=== PATIENT | male | born 2000 | race Caucasian/White ===

== ENCOUNTER 2019-04-25 10:26 | Emergency (ER) | payer OTHER ==
--- NOTE | 2019-04-25 10:28 | ER Report ---
History and Physical Time Seen By MD: 10:25 HPI/ROS CHIEF COMPLAINT: Itching, hand swelling HISTORY OF PRESENT ILLNESS: Patient is a 18-year-old male here with complaints of bilateral hand swelling, itching. Patient reportedly completed a 10 day course of penicillin for a mouth infection and says currently he developed itching, hand swelling, mild facial rash for which he has taken Benadryl, ibuprofen, seasonal allergy medication without relief. Patient is alert and oriented, no respiratory distress, afebrile at time of evaluation. There is no stridor presentation or esophageal swelling. REVIEW OF SYSTEMS: Constitutional: No fever, no chills. Eyes: No discharge. ENT: No sore throat. No swelling of the posterior oropharynx, no stridor or wheezing Respiratory: No wheezing, rales or rhonchi. Lungs are clear to auscultation in all quadrants Cardiovascular: No chest pain, no palpitations. Musculoskeletal: No significant edema Skin: Mild facial rash without urticaria Neurological: No headache. Allergies: Coded Allergies: Penicillins (Verified Adverse Reaction, Mild, ITCHING, 04/25/19) Home Meds Active Scripts Hydroxyzine Hcl (HYDROXYZINE HCL) 25 Mg Tablet, 25 MG PO Q8-12H PRN for ITCHING, #20 TAB Prov:JANICE ENG DO 04/25/19 Constitutional Vital Sign - Last 24 Hours 04/25/19 10:31 Temp 97.9 Pulse 81 Resp 16 B/P (MAP) 137/82 Pulse Ox 93 O2 Delivery Room Air Physical Exam General Appearance: The patient is alert, has no immediate need for airway protection and no signs of toxicity. No acute distress Eyes: Pupils equal and round no pallor or injection. ENT, Mouth: Mucous membranes are moist. Respiratory: There are no retractions, lungs are clear to auscultation. Cardiovascular: Regular rate and rhythm. Neurological: No focal neurological deficits Skin: Faint rash of the face without urticaria Musculoskeletal: Extremities are nontender, nonswollen and have full range of motion. DIFFERENTIAL DIAGNOSIS: After history and physical exam differential diagnosis was considered for seasonal allergies, drug allergy, contact dermatitis, medication side effect Medical Decision Making ED Course/Re-evaluation ED Course Patient is a 18-year-old male here with complaints of itching, faint rash of the face without urticaria stridor or wheezing. Patient is hemodynamically stable. Patient completed a course of penicillin for a mouth infection subsequently developing the prior mentioned symptoms. Patient was given Benadryl, single prednisone dose, Atarax. Prescription provided for Atarax. PCP follow-up recommended. Return precautions provided. Decision to Disposition Date: Apr 25, 2019 Decision to Disposition Time: 10:33 Depart Departure Latest Vital Signs Vital Signs Date Time Temp Pulse Resp B/P (MAP) Pulse Ox O2 Delivery O2 Flow Rate FiO2 04/25/19 10:31 97.9 81 16 137/82 93 Room Air Impression: Primary Impression: Pruritus Condition: Improved Disposition: HOME OR SELF-CARE New Scripts Hydroxyzine Hcl (HYDROXYZINE HCL) 25 Mg Tablet 25 MG PO Q8-12H PRN for ITCHING, #20 TAB Prov: JANICE ENG DO 04/25/19 Additional Instructions: Please drink plenty of water. You may take Atarax 1 tablet every 8-12 hours as needed for itching. You may take Benadryl as needed for itching. Please return promptly if you develop difficulty breathing, difficulty swallowing, worsening rash, fevers or chills. JANICE ENG DO Apr 25, 2019 10:28
[2019-04-25 10:31] VITALS: BP 137/82
[2019-04-25] MEDS ORDERED: diphenhydrAMINE 25 MG CAP PO ONE (10:35)
[2019-04-25] MEDS ORDERED: predniSONE 20 MG TAB PO ONE (10:35)
[2019-04-25] MEDS ORDERED: hydrOXYzine 25 MG TAB PO ONE (10:35)
[2019-04-25] MEDS ORDERED: diphenhydrAMINE 25 MG CAP ONE (10:38)
[2019-04-25] MEDS ORDERED: HYDR-4225 PO (10:38)
== END 2019-04-25 10:43 | disposition home or self-care (01) ==
LOC: ER 10:33
DX: L29.8 Other pruritus (principal)
CPT/HCPCS: 99283; J7512; Q0163